=== PATIENT | female | born 1925 | race Caucasian/White ===

== ENCOUNTER 2016-06-15 16:58 | Emergency (ER) | payer OTHER ==
[~2016-06-15] VITALS: Ht 160 cm; Wt 65.8 kg
[~2016-06-15 16:58] MED LIST: AMLODIPINE BESY10 MG PO; ARTIFICIAL TEAR15 M1 BOTH EYES; ASPIRIN81 M2 PO; COLACE100 MG PO; DITROPAN5 MG PO; FISH OIL 1,0001 EACH PO; FUROSEMIDE40 MG PO; GEODON80 MG PO; HYDROCHLOROTHIA25 MG PO; HYZAAR 100-11 TABLET PO; IVERMECTIN3 MG PO; LOSARTAN POTAS100 MG PO; NORVASC5 MG PO; POTASSIUM CHLO20 ME1 PO; TOPROL XL6.25 MG PO; TRAZODONE HCL50 MG PO; TYLENOL ARTHRI650 MG PO; VENTOLIN HFA18 GM IH; ZIPRASIDONE HCL40 MG PO
[2016-06-15 19:00] VITALS: BP 136/49
== END 2016-06-15 20:16 | disposition home or self-care (01) ==
LOC: EME 16:58
DX: S70.01XA Contusion of right hip, initial encounter (principal); W01.0XXA Fall on same level from slipping, tripping and stumbling without subsequent striking against object, initial encounter; Y92.10 Unspecified residential institution as the place of occurrence of the external cause; I10 Essential (primary) hypertension; Z88.2 Allergy status to sulfonamides
CPT/HCPCS: 73502; 73610; 99281; 99285

== ENCOUNTER 2016-09-05 06:48 | Inpatient (IN) | payer OTHER ==
[~2016-09-05] VITALS: Ht 157.5 cm; Wt 66.0 kg
[~2016-09-05 06:48] MED LIST changes: +ASPIR-LOW81 MG PO; -ASPIRIN81 M2 PO; -TYLENOL ARTHRI650 MG PO; +TYLENOL REGULA325 MG PO
[2016-09-05 07:33] LABS: EOSINOPHIL (%) 5.7 % (0-5); EOSINOPHIL COUNT 0.6 K/uL (0-0.3); HEMATOCRIT 42.2 % (36.0-46.0); IMMATURE GRANULOCYTE (%) 0.6 % (0.0-0.7); IMMATURE GRANULOCYTE COUNT 0.1 K/uL; INSTRUMENT ABS NEUTROPHIL CT 7.2 K/uL; LYMPHOCYTE COUNT 1.6 K/uL (1.0-2.8); MCH 30.6 PG (29.0-34.0); MCHC 31.8 G/DL (30.0-36.0); MCV 96.3 FL (83-99); MONOCYTE (%) 7.5 % (3-12); MONOCYTE COUNT 0.8 K/uL (0-0.8); NEUTROPHIL (%) 70.1 % (45-76); NEUTROPHIL COUNT 7.2 K/uL (1.8-6.4); PLATELET COUNT 223 K/uL (156-360); RBC DIS.WIDTH-CV 13.1 % (11.8-14.6); RBC DIS.WIDTH-SD 46.7 % (39-53); RED BLOOD COUNT 4.38 M/uL (3.80-5.20); WHITE BLOOD COUNT 10.2 K/uL (4.1-10.2)
[2016-09-05 07:50] LABS: CHLORIDE 105 mEq/L (99-109); POTASSIUM 3.8 mEq/L (3.7-5.4); SODIUM 146 mEq/L (136-147)
[2016-09-05 07:53] LABS: GLUCOSE 111 mg/dL (70-99)
[2016-09-05 07:54] LABS: ANION GAP 10 MEQ/L (2-14)
[2016-09-05 07:55] LABS: TOTAL BILIRUBIN 0.5 mg/dL (0.0-1.0)
[2016-09-05 07:56] LABS: ALKALINE PHOSPHATASE 64 IU/L (3-129); GFR ESTIMATE (CALCULATED) > 59 mL/min/
[2016-09-05 07:57] LABS: UREA NITROGEN (BUN) 12 mg/dL (9-23)
[2016-09-05 09:07] LABS: PROTHROMBIN TIME 11.3 SEC (10.2-12.9)
[2016-09-05 09:10] LABS: PTT 29.8 SEC (25-37)
[2016-09-05 09:40] LABS: ADD MIUA? NO; BILIRUBIN NEGATIVE; BLOOD NEGATIVE; COLOR YELLOW ((YELLOW)); GLUCOSE (STRIP) NEGATIVE; KETONES NEGATIVE; LEUKOCYTES NEGATIVE; NITRITE NEGATIVE; PROTEIN (STRIP) NEGATIVE; UROBILINOGEN 0.2 MG/DL (0.2-1.0)
[2016-09-05] MEDS ORDERED: ZIPRASIDONE HCL20 MG PO (12:22)
[2016-09-05] MEDS ORDERED: TRAMADOL HCL50 MG PO (12:22)
[2016-09-05] MEDS ORDERED: K-DUR20 MEQ PO (12:22)
[2016-09-05] MEDS ORDERED: COZAAR50 MG PO (12:24)
[2016-09-05] MEDS ORDERED: MACULAR VITAMI1 EACH PO (12:28)
[2016-09-05 14:00] VITALS: BP 162/72
[2016-09-05 15:00] VITALS: BP 162/72
[2016-09-05 17:18] VITALS: BP 144/68
[2016-09-05 19:50] VITALS: BP 138/79
[2016-09-05 22:19] LABS: HEMATOCRIT 43.2 % (36.0-46.0); MCH 30.9 PG (29.0-34.0); MCHC 31.5 G/DL (30.0-36.0); MCV 98.2 FL (83-99); PLATELET COUNT 245 K/uL (156-360); RBC DIS.WIDTH-CV 13.2 % (11.8-14.6); RBC DIS.WIDTH-SD 47.8 % (39-53); WHITE BLOOD COUNT 15.5 K/uL (4.1-10.2)
[2016-09-06] VITALS (8 sets, daily range): BP systolic 121–156; BP diastolic 57–634
[2016-09-06 06:59] LABS: ANION GAP 8 MEQ/L (2-14); CHLORIDE 104 MEQ/L (99-109); GFR ESTIMATE (CALCULATED) > 59 mL/min/; SAMPLE HEMOLYSIS CHECK 0; SAMPLE ICTERIC CHECK 0; SAMPLE LIPEMIA CHECK 0; SODIUM 143 MEQ/L (136-147); UREA NITROGEN (BUN) 13 mg/dL (9-23)
[2016-09-06 07:03] LABS: GLUCOSE 168 mg/dL (70-99); MCV 98.1 FL (83-99)
[2016-09-07 04:10] VITALS: BP 123/60
[2016-09-07 06:24] LABS: EOSINOPHIL (%) 0 % (0-5); HEMATOCRIT 30.4 % (36.0-46.0); IMMATURE GRANULOCYTE (%) 0.4 % (0.0-0.7); IMMATURE GRANULOCYTE COUNT 0.1 K/uL; INSTRUMENT ABS NEUTROPHIL CT 11.9 K/uL; LYMPHOCYTE COUNT 1.1 K/uL (1.0-2.8); MCH 31.3 PG (29.0-34.0); MCHC 32.2 G/DL (30.0-36.0); MCV 97.1 FL (83-99); MONOCYTE (%) 7.6 % (3-12); MONOCYTE COUNT 1.1 K/uL (0-0.8); NEUTROPHIL (%) 84.4 % (45-76); NEUTROPHIL COUNT 11.9 K/uL (1.8-6.4); PLATELET COUNT 200 K/uL (156-360); RBC DIS.WIDTH-CV 13.3 % (11.8-14.6); RBC DIS.WIDTH-SD 47.4 % (39-53); WHITE BLOOD COUNT 14.1 K/uL (4.1-10.2)
[2016-09-07 06:29] LABS: RED BLOOD COUNT 3.13 M/uL (3.80-5.20)
[2016-09-07 06:56] LABS: ANION GAP 7 MEQ/L (2-14); CHLORIDE 101 MEQ/L (99-109); GFR ESTIMATE (CALCULATED) > 59 mL/min/; GLUCOSE 155 mg/dL (70-99); POTASSIUM 4.2 MEQ/L (3.7-5.4); SAMPLE HEMOLYSIS CHECK 0; SAMPLE ICTERIC CHECK 0; SAMPLE LIPEMIA CHECK 0; SODIUM 139 MEQ/L (136-147)
[2016-09-07 06:57] LABS: UREA NITROGEN (BUN) 27 mg/dL (9-23)
[2016-09-07 08:13] VITALS: BP 117/58
[2016-09-07 16:09] VITALS: BP 134/63
[2016-09-07 20:15] VITALS: BP 125/57
[2016-09-08] VITALS (11 sets, daily range): BP systolic 115–178; BP diastolic 54–83
[2016-09-08 09:35] LABS: HEMATOCRIT 25.8 % (36.0-46.0); MCV 95.9 FL (83-99)
[2016-09-09 04:01] VITALS: BP 124/58
[2016-09-09 04:50] LABS: EOSINOPHIL (%) 0 % (0-5); IMMATURE GRANULOCYTE COUNT 0.1 K/uL; INSTRUMENT ABS NEUTROPHIL CT 5.8 K/uL; LYMPHOCYTE COUNT 0.8 K/uL (1.0-2.8); MCH 30.6 PG (29.0-34.0); MCHC 32.4 G/DL (30.0-36.0); MCV 94.5 FL (83-99); MEAN PLAT.VOLUME 11.2 uM^3 (9.5-12.4); MONOCYTE (%) 5.7 % (3-12); MONOCYTE COUNT 0.4 K/uL (0-0.8); NEUTROPHIL (%) 82.4 % (45-76); NEUTROPHIL COUNT 5.8 K/uL (1.8-6.4); PLATELET COUNT 176 K/uL (156-360); RBC DIS.WIDTH-CV 14.6 % (11.8-14.6); RBC DIS.WIDTH-SD 50.1 % (39-53); RED BLOOD COUNT 3.07 M/uL (3.80-5.20); WHITE BLOOD COUNT 7.1 K/uL (4.1-10.2)
[2016-09-09 08:27] VITALS: BP 156/70
[2016-09-09 11:27] VITALS: BP 157/68
[2016-09-09 15:51] VITALS: BP 151/67
[2016-09-09 19:36] VITALS: BP 1349/64; BP 139/64
[2016-09-10 00:01] VITALS: BP 168/71
[2016-09-10 04:17] VITALS: BP 136/65
[2016-09-10 05:44] LABS: HEMATOCRIT 28.8 % (36.0-46.0); MCHC 32.3 G/DL (30.0-36.0); PLATELET COUNT 205 K/uL (156-360); RBC DIS.WIDTH-CV 14.1 % (11.8-14.6); RBC DIS.WIDTH-SD 50.1 % (39-53); WHITE BLOOD COUNT 9.4 K/uL (4.1-10.2)
[2016-09-10 07:52] VITALS: BP 177/72
[2016-09-10] MEDS ORDERED: OXAYDO7.5 MG PO (11:28)
[2016-09-10] MEDS ORDERED: DELTASONE20 M1 PO (11:28)
[2016-09-10] MEDS ORDERED: LOVENOX40 MG/0.4 SC (11:28)
[2016-09-10 12:10] VITALS: BP 187/75
== END 2016-09-10 14:06 | DRG 470 ==
LOC: EME → EDBD 06:48 → EME 06:48 → 3EAST 09:50 → EDOF 09:50 → 3EAST 09:50 → ENRESERV 09:58 → 3EAST 13:31
PROVIDERS: Internal Medicine; Orthopaedic Surgery; Physician Assistant
PROC: 0SRS0JA Replacement of Left Hip Joint, Femoral Surface with Synthetic Substitute, Uncemented, Open Approach (ICD-10-PCS; principal; 2016-09-05)
PROC: 30233N1 Transfusion of Nonautologous Red Blood Cells into Peripheral Vein, Percutaneous Approach (ICD-10-PCS; 2016-09-08)
DX: S72.032A Displaced midcervical fracture of left femur, initial encounter for closed fracture (principal); W01.0XXA Fall on same level from slipping, tripping and stumbling without subsequent striking against object, initial encounter; D62 Acute posthemorrhagic anemia; I97.89 Other postprocedural complications and disorders of the circulatory system, not elsewhere classified; R00.1 Bradycardia, unspecified; I47.1 Supraventricular tachycardia; I10 Essential (primary) hypertension; C67.9 Malignant neoplasm of bladder, unspecified; G30.9 Alzheimer's disease, unspecified; F02.80 Dementia in other diseases classified elsewhere, unspecified severity, without behavioral disturbance, psychotic disturbance, mood disturbance, and anxiety; I27.2 Other secondary pulmonary hypertension; I45.10 Unspecified right bundle-branch block; I49.1 Atrial premature depolarization; J44.9 Chronic obstructive pulmonary disease, unspecified; J84.10 Pulmonary fibrosis, unspecified; G43.909 Migraine, unspecified, not intractable, without status migrainosus; Z86.718 Personal history of other venous thrombosis and embolism; Z88.2 Allergy status to sulfonamides; Z79.82 Long term (current) use of aspirin; Z85.3 Personal history of malignant neoplasm of breast
CPT/HCPCS: 71010; 71020; 71250; 73501; 73502; 80048; 80053; 81003; 83880; 84439; 84443; 85014; 85018; 85025; 85027; 85610; 85730; 86900; 86901; 86920; 93005; 93306; 94640; 94640 76; 94799; 97530 GP; 99202; 99281; 99285; J0131; J0330; J0360; J0690; J1100; J1170; J1650; J2270; J2405; J2920; J3010; J7120; P9016